=== PATIENT | female | born 1985 | race Caucasian/White ===

== ENCOUNTER → 2021-10-07 | Outpatient (CLI) | payer OTHER ==
[~2021-10-07] MED LIST: CODACE30 PO; Cleocin HCl300 MG PO; DOCU100 PO; HYDR1TAB94 PO; IBUP600 PO; IBUP800 PO; LAMO100 PO; LAMO25 PO; LEVSOD50 PO; LEVSOD88 PO; LITH300C PO; METPHE20 PO; METPHE20CR PO; OXCA150 PO; Omeprazole20 M1 PO; PROM25 PO; Percocet 5-3251 EACH PO; SIME80CH PO
== END ==
LOC: LAB SHORT 13:39 → PLD 13:39
DX: D22.4 Melanocytic nevi of scalp and neck (principal)
CPT/HCPCS: 88305

== ENCOUNTER → 2025-01-19 | Outpatient (CLI) | payer OTHER ==
[~2025-01-19] MED LIST changes: +EUTHYROX88 MCG PO; +Norco 5-325 Ta1 EACH PO; +OMEP20ER PO; +ONDA4ODT MM
[2025-01-19 13:58] LABS: Bacterial Vaginosis PCR Negative (NEGATIVE); Candida Group, PCR NOT DETECTED (NOT DETECT); Candida glabrata-krusei, PCR NOT DETECTED (NOT DETECT)
== END ==
LOC: LAB SHORT 09:45 → LAB 09:45
PROVIDERS: Advanced Practice Midwife
DX: N76.0 Acute vaginitis (principal)
CPT/HCPCS: 81515

== ENCOUNTER → 2025-01-19 | Outpatient (CLI) | payer OTHER | LOC: LAB SHORT 15:31 → LAB 15:31 | DX: R30.0 Dysuria (principal) | CPT/HCPCS: 87086 ==